=== PATIENT | male | born 1945 | race Hispanic/Latino ===

== ENCOUNTER 2017-10-03 18:07 | Inpatient (IN) | payer MEDICARE ==
[~2017-10-03] VITALS: Ht 165.1 cm; Wt 79.6 kg
[2017-10-03 18:28] LABS: HEMATOCRIT 37.9 % (42-54); LYMPHOCYTES % (AUTO) 14.3 % (21.0-51.0); MEAN CORPUSCULAR HEMOGLOBIN 32.5 pg (27.0-33.0); MEAN CORPUSCULAR HGB CONC 35.9 g/dL (32.0-36.0); MEAN CORPUSCULAR VOLUME 90.7 fL (79-99); MONOCYTES % (AUTO) 7.8 % (3.0-13.0); NEUTROPHILS % (AUTO) 76.9 % (40.0-77.0); NUCLEATED RED BLOOD CELLS 0.1 % (0.0-0.19); PLATELET COUNT (AUTO) 256 K/uL (130-400); RED BLOOD CELL COUNT(AUTO) 4.19 MIL/uL (4.50-6.20); RED CELL DISTRIBUTION WIDTH 14.4 % (11.0-15.5); WHITE BLOOD COUNT (AUTO) 7.6 K/uL (4.8-10.8)
[2017-10-03 18:36] LABS: APPEARANCE,URINE Clear (CLEAR); BILIRUBIN,URINE Negative (NEGATIVE); COLOR,URINE Dark Yellow (YELLOW); GLUCOSE, URINE (UA) Negative (NEGATIVE); KETONES,URINE Negative (NEGATIVE); LEUKOCYTE ESTERASE ,URINE Negative (NEGATIVE); NITRATE,URINE Negative (NEGATIVE); OCCULT BLOOD,URINE Negative (NEGATIVE); PH,URINE 5.5 (5.0-8.0); PROTEIN,URINE Trace (NEGATIVE)
[2017-10-03 18:38] LABS: CARBON DIOXIDE 25 mmol/L (21-32); CHLORIDE 101 mmol/L (101-111); CREATININE 1.5 mg/dL (0.5-1.5); GLOMERULAR FILTR. RATE CALC 49 mL/min (>60); GLUCOSE,RANDOM 164 mg/dL (70-105); INR 1.07 (0.85-1.15); PARTIAL THROMBOPLASTIN TIME 26.4 SEC (26.3-35.5); POTASSIUM 3.5 mmol/L (3.5-5.1); PROTHROMBIN TIME 11.2 SEC (9.6-11.6); SODIUM SERUM 135 mmol/L (136-145); UREA NITROGEN, BLOOD 25 mg/dL (7-18)
[2017-10-03 18:48] LABS: BACTERIA,URINE Few /HPF (None Seen); RBC,URINE 0-1 /HPF (0-1); SQUAMOUS EPITHELIAL CELL,UR Rare /HPF (0-2); WBC,URINE 0-1 /HPF (0-1)
[2017-10-03 18:55] LABS: ALANINE AMINOTRANSFERASE 33 U/L (12-78); ALBUMIN 3.3 g/dL (3.5-5.0); ASPARTATE AMINOTRANSFERASE 41 U/L (10-37); BILIRUBIN,TOTAL 0.9 mg/dL (0.2-1.0); CREATINE KINASE MB < 0.5 ng/mL (0.5-3.6); CREATINE KINASE, TOTAL 87 U/L (21-232); MYOGLOBIN 35 ng/mL (10-92); TOTAL PROTEIN, SERUM 7.5 g/dL (6.0-8.3); TROPONIN I < 0.04 ng/mL (0.00-0.06)
[2017-10-03] MEDS ORDERED: SODIUM CHLORIDE 0.9% 1000ML 1,000 ML IV ONE (19:26)
[2017-10-03] MEDS ORDERED: ACETAMINOPHEN EXTRA STRENGTH 500 MG TABLET ONE (19:26)
[2017-10-03] MEDS ORDERED: DOXYCYCLINE HYCLATE 100 MG TABLET PO ONE (23:11)
[2017-10-03] MEDS ORDERED: FAMOTIDINE 20MG TAB 20 MG TAB ONE (23:11)
[2017-10-04 00:15] VITALS: BP 130/70
[2017-10-04] MEDS ORDERED: DEXTROSE 50%-WATER 50 ML DISP.SYRIN IV PRN (01:30)
[2017-10-04] MEDS ORDERED: GLUCAGON 1MG KIT 1 MG ML IM PRN (01:30)
[2017-10-04] MEDS: SODIUM CHLORIDE 0.9% 1000ML 1,000 ML IV SCH ×3 (01:49→21:30)
[2017-10-04] MEDS ORDERED: TAMS0.4C32 PO (02:36)
[2017-10-04] MEDS ORDERED: AMLO5TAB2 PO (02:36)
[2017-10-04] MEDS ORDERED: FISH1CAP27 PO (02:36)
[2017-10-04] MEDS ORDERED: VALS320T16 PO (02:36)
[2017-10-04] MEDS ORDERED: METF500T6 PO (02:36)
[2017-10-04] MEDS ORDERED: ATOR40TA69 PO (02:36)
[2017-10-04] MEDS ORDERED: HYDR25TA PO (02:36)
[2017-10-04] MEDS ORDERED: FENO130C8 PO (02:36)
[2017-10-04 03:53] VITALS: BP 113/66
[2017-10-04 04:05] LABS: MEAN CORPUSCULAR HEMOGLOBIN 31.8 pg (27.0-33.0); MEAN CORPUSCULAR HGB CONC 35.1 g/dL (32.0-36.0); MEAN CORPUSCULAR VOLUME 90.5 fL (79-99); PLATELET COUNT (AUTO) 236 K/uL (130-400); RED BLOOD CELL COUNT(AUTO) 3.86 MIL/uL (4.50-6.20); RED CELL DISTRIBUTION WIDTH 14.3 % (11.0-15.5); WHITE BLOOD COUNT (AUTO) 6.6 K/uL (4.8-10.8)
[2017-10-04 04:09] LABS: ALBUMIN 2.8 g/dL (3.5-5.0); BILIRUBIN,TOTAL 0.9 mg/dL (0.2-1.0); CREATININE 1.3 mg/dL (0.5-1.5); POTASSIUM 3.4 mmol/L (3.5-5.1); TOTAL PROTEIN, SERUM 6.6 g/dL (6.0-8.3)
[2017-10-04] MEDS: INSULIN R PO SS1 SQ SCH ×5 (06:09→21:00)
[2017-10-04] MEDS ORDERED: METFORMIN HCL 500 MG TABLET PO SCH (08:00)
[2017-10-04 08:04] VITALS: BP 120/76
[2017-10-04] MEDS: LOSARTAN 100 MG TABLET PO SCH (08:38)
[2017-10-04] MEDS: ACETAMINOPHEN 325 MG TAB PO PRN ×2 (08:38→19:10)
[2017-10-04] MEDS: HYDROCHLOROTHIAZIDE 25 MG TABLET PO SCH (08:40)
[2017-10-04] MEDS: FAMOTIDINE 20MG TAB 20 MG TAB PO SCH (08:40)
[2017-10-04] MEDS: FENOFIBRATE MICRONIZED 130 MG PO SCH (08:42)
[2017-10-04] MEDS ORDERED: DOXYCYCLINE HYCLATE 100 MG TABLET PO SCH (09:00)
[2017-10-04 11:31] VITALS: BP 130/72
[2017-10-04] MEDS: FLUCONAZOLE 200 MG/NS 100 ML 100 ML IV SCH (12:54)
[2017-10-04] MEDS: DOXYCYCLINE 100MG+NS 250ML 250 ML IV SCH (15:14)
[2017-10-04] MEDS ORDERED: IOPAMIDOL-370 75 ML VIAL IV ONE (15:30)
[2017-10-04 16:34] VITALS: BP 134/81
[2017-10-04 20:00] VITALS: BP 119/73
[2017-10-04] MEDS: ATORVASTATIN CALCIUM 40 MG TABLET PO SCH (20:59)
[2017-10-04] MEDS: TAMSULOSIN HCL 0.4 MG CAP.ER.24H PO SCH (20:59)
[2017-10-04] MEDS: AMLODIPINE BESYLATE 5 MG TAB PO SCH (21:00)
[2017-10-05 00:15] VITALS: BP 127/72
[2017-10-05] MEDS: DOXYCYCLINE 100MG+NS 250ML 250 ML IV SCH ×2 (02:15→14:00)
[2017-10-05 04:15] VITALS: BP 129/74
[2017-10-05] MEDS: INSULIN R PO SS1 SQ SCH ×4 (07:30→20:33)
[2017-10-05] MEDS: SODIUM CHLORIDE 0.9% 1000ML 1,000 ML IV SCH ×2 (07:30→17:30)
[2017-10-05 08:00] VITALS: BP 134/83
[2017-10-05] MEDS: FENOFIBRATE MICRONIZED 130 MG PO SCH (09:00)
[2017-10-05] MEDS: LOSARTAN 100 MG TABLET PO SCH (09:00)
[2017-10-05] MEDS: HYDROCHLOROTHIAZIDE 25 MG TABLET PO SCH (09:00)
[2017-10-05] MEDS: FAMOTIDINE 20MG TAB 20 MG TAB PO SCH (09:18)
[2017-10-05 11:43] VITALS: BP 140/79
[2017-10-05] MEDS: FLUCONAZOLE 200 MG/NS 100 ML 100 ML IV SCH (13:14)
[2017-10-05] MEDS: ACETAMINOPHEN 325 MG TAB PO PRN (16:23)
[2017-10-05 16:41] VITALS: BP 123/71
[2017-10-05 19:20] VITALS: BP 107/64
[2017-10-05] MEDS: AMLODIPINE BESYLATE 5 MG TAB PO SCH (21:20)
[2017-10-05] MEDS: TAMSULOSIN HCL 0.4 MG CAP.ER.24H PO SCH (21:20)
[2017-10-05] MEDS: ATORVASTATIN CALCIUM 40 MG TABLET PO SCH (21:20)
[2017-10-06 00:15] VITALS: BP 105/66
[2017-10-06] MEDS: DOXYCYCLINE 100MG+NS 250ML 250 ML IV SCH (02:21)
[2017-10-06] MEDS: SODIUM CHLORIDE 0.9% 1000ML 1,000 ML IV SCH (03:01)
[2017-10-06 04:18] VITALS: BP 122/80
[2017-10-06] MEDS: IPRATROPIUM 0.5 MG/2.5 ML INH IH SCH ×2 (06:00)
[2017-10-06] MEDS: ALBUTEROL SULFATE 0.083% 2.5 MG/3 ML INH IH SCH ×2 (06:00)
[2017-10-06] MEDS: INSULIN R PO SS1 SQ SCH ×2 (06:23→11:30)
[2017-10-06 08:00] VITALS: BP 117/67
[2017-10-06] MEDS: FAMOTIDINE 20MG TAB 20 MG TAB PO SCH (08:02)
[2017-10-06] MEDS: FENOFIBRATE MICRONIZED 130 MG PO SCH (08:03)
[2017-10-06] MEDS: HYDROCHLOROTHIAZIDE 25 MG TABLET PO SCH (08:03)
[2017-10-06] MEDS: LOSARTAN 100 MG TABLET PO SCH (08:03)
[2017-10-06 11:47] VITALS: BP_SYST 128; BP_SYST 135; BP_DIAS 82; BP_DIAS 88
[2017-10-06] MEDS: FLUCONAZOLE 200 MG/NS 100 ML 100 ML IV SCH (12:20)
[2017-10-08 16:14] LABS: ROCKY MT SPOTTED FEVER IGG <1:64 (Neg:<1:64); TYPHUS FEVER AB IGG <1:64 (Neg:<1:64)
== END 2017-10-06 17:08 | disposition home or self-care (01) | DRG 868 ==
LOC: EDH 18:07 → EDHIP 21:47 → 3CH 22:59
PROVIDERS: ADMIT Internal Medicine Nephrology; ATTEND Internal Medicine Nephrology
DX: A75.9 Typhus fever, unspecified (principal); N39.0 Urinary tract infection, site not specified; I48.91 Unspecified atrial fibrillation; E11.9 Type 2 diabetes mellitus without complications; E87.1 Hypo-osmolality and hyponatremia; A79.9 Rickettsiosis, unspecified; E66.9 Obesity, unspecified; J98.11 Atelectasis; I10 Essential (primary) hypertension; E78.00 Pure hypercholesterolemia, unspecified; E78.5 Hyperlipidemia, unspecified; K57.90 Diverticulosis of intestine, part unspecified, without perforation or abscess without bleeding; N40.0 Benign prostatic hyperplasia without lower urinary tract symptoms; R32 Unspecified urinary incontinence; Z79.84 Long term (current) use of oral hypoglycemic drugs; Z87.440 Personal history of urinary (tract) infections; Z87.442 Personal history of urinary calculi; Z68.29 Body mass index [BMI] 29.0-29.9, adult
CPT/HCPCS: 36415; 71046; 71250; 74177; 80053; 81001; 82550; 82553; 82948; 83605; 83874; 84484; 85025; 85027; 85610; 85730; 86606; 86612; 86618; 86635; 86698; 86757; 87040; 87088; 87804; 93005; 94664; J1450; J1815; J3490; J7030; Q9967